=== PATIENT | male | born 1965 | race Caucasian/White ===

== ENCOUNTER 2023-06-20 13:28 | Observation (INO) ==
[~2023-06-20 13:28] MED LIST: Naloxone 0.4 mg VIAL 0.4 mg/ml 1 ml VIAL IV PRN; Prochlorperazine 5 mg/ml 2 ml VIAL (10 mg) IV PRN
[2023-06-20] MEDS ORDERED: ceFAZolin *3* GM in NS PREMIX 3 GM/100 ML BAG IV ONE (14:37)
[2023-06-20 14:46] LABS: Rapid COVID-19 Molecular Undetected (Undetected)
[2023-06-20] MEDS ORDERED: ROPIVACAINE 5 MG/ML 30 ML BTL (0.5%) ONE ×2 (16:01→16:46)
[2023-06-20] MEDS ORDERED: Midazolam 2 mg/2 ml VIAL 1 mg/ml 2 ml VIAL (2 mg) ONE ×2 (16:01→16:59)
[2023-06-20] MEDS ORDERED: Morphine 2 MG/ML SYRINGE IV PRN (16:41)
[2023-06-20] MEDS ORDERED: Ondansetron ODT 4 mg TAB 4 MG TAB PO PRN (16:41)
[2023-06-20] MEDS ORDERED: Ondansetron 4 mg VIAL 2 MG/ML 2 ml VIAL IV PRN (16:41)
[2023-06-20] MEDS ORDERED: Magnesium Hydroxide LIQ 30 ML UDC PO PRN (16:41)
[2023-06-20] MEDS ORDERED: Lactulose 30 ml UDC PO PRN (16:41)
[2023-06-20] MEDS ORDERED: Propofol 10 MG/ML 20 ML BTL ONE ×3 (16:59→18:59)
[2023-06-20] MEDS ORDERED: Acetaminophen IV 1 GM/100ML 0 MG/0 ML BAG IV ONE (18:18)
[2023-06-20] MEDS ORDERED: Dexamethasone IV 4 MG/ML VIAL 1 ml VIAL ONE (18:21)
[2023-06-20] MEDS ORDERED: Ondansetron 4 mg VIAL 2 MG/ML 2 ml VIAL ONE (18:21)
[2023-06-20] MEDS ORDERED: Acetaminophen IV 1 GM/100ML 1,000 MG/100 ML BAG IV ONE (18:59)
[2023-06-20] MEDS ORDERED: fentaNYL 100 mcg/2 ml 50 MCG/ML VIAL ONE ×2 (19:20→20:34)
[2023-06-20] MEDS: fentaNYL 100 mcg/2 ml 50 MCG/ML VIAL IV PRN (20:38)
[2023-06-20] MEDS: Buffered Lidocaine 1% SYRIN 1 ml INTRADERM ONE ×2 (22:01)
[2023-06-20] MEDS: Lactated Ringers 1000 ml BAG 1,000 ML IV SCH ×3 (22:02→22:26)
[2023-06-20] MEDS: Magnesium Hydroxide LIQ 30 ML UDC PO SCH (22:42)
[2023-06-21] MEDS: ceFAZolin 1 GM ADVAN 1 GM in NS 0.9% 50 ML 50 ML IVPB SCH (01:34)
[2023-06-21 06:15] LABS: Hematocrit 39.5 % (38-53); Hemoglobin 13.9 g/dL (13.2-16.3); Mean Platelet Volume 8.8 fL (7.5-11.2); Platelet Count 154 10^3/uL (150-450)
[2023-06-21 06:36] LABS: Calcium 8.4 mg/dL (8.6-10.3); Creatinine, Serum 0.93 mg/dL (0.67-1.17); Potassium 4.1 mmol/L (3.5-5.0)
[2023-06-21] MEDS: Vitamin THERAPEUTIC TAB PO SCH (08:53)
[2023-06-21] MEDS: COVID VAC 23-24(12+)(Moderna) SYR 0.5 ML IM ONE (11:28)
== END 2023-06-21 18:00 | disposition home or self-care (01) ==
LOC: SSU 13:28 → OR 13:28
PROVIDERS: ADMIT Orthopaedic Surgery Adult Reconstructive Orthopaedic Surgery; ATTEND Orthopaedic Surgery Adult Reconstructive Orthopaedic Surgery